=== PATIENT | male | born 1995 | race Caucasian/White ===

== ENCOUNTER 2017-07-28 19:07 | Emergency (ER) | payer OTHER ==
[2017-07-28 19:23] VITALS: PULSE 100
--- NOTE | 2017-07-28 20:10 | C.PDOC ---
History Of Present Illness 22yo male, presents to ED for evaluation of left knee pain, present since earlier today. Patient states he twisted his knee while playing soccer, sustaining the injury. He denies any numbness, tingling or weakness. Offers no other medical complaints. Time Seen by Provider: 07/28/17 19:46 Chief Complaint (Nursing): Lower Extremity Problem/Injury History Per: Patient History/Exam Limitations: no limitations Onset/Duration Of Symptoms: Hrs Current Symptoms Are (Timing): Still Present - Knee Description Of Injury: Twisted Past Medical History Reviewed: Historical Data, Nursing Documentation, Vital Signs Vital Signs: Last Vital Signs Temp 98.1 F 07/28/17 19:19 Pulse 100 H 07/28/17 19:19 Resp 16 07/28/17 19:19 BP 122/81 07/28/17 19:19 Pulse Ox 99 07/28/17 20:24 - Medical History PMH: No Chronic Diseases Surgical History: No Surg Hx Family History: States: No Known Family Hx - Social History Hx Alcohol Use: No Hx Substance Use: No - Immunization History Hx Tetanus Toxoid Vaccination: No Hx Influenza Vaccination: No Hx Pneumococcal Vaccination: No Review Of Systems Musculoskeletal: Positive for: Other (left knee pain) Neurological: Negative for: Weakness, Numbness Physical Exam - Physical Exam Appears: Well, No Acute Distress Eye(s): bilateral: Normal Inspection Extremity: Tenderness (tenderness to lateral and medial aspects of left knee), No Deformity, No Swelling, No Other (ecchymosis) Neurological/Psych: Oriented x3, Normal Motor, Normal Sensation Gait: Other (with minimal limp) ED Course And Treatment O2 Sat by Pulse Oximetry: 99 (RA) Pulse Ox Interpretation: Normal - Other Rad Left knee XR X-Ray: Interpreted by Me, Viewed By Me Interpretation: No fracture or dislocation Progress Note: Pt placed in a knee brace by RN and is ambulatory at [facility] Medical Decision Making Medical Decision Making: Plan: -- XR Left knee Disposition - Disposition Disposition: HOME/ ROUTINE Disposition Time: 20:19 Condition: STABLE Additional Instructions: Please follow up with PMD Take motrin for pain Return to ER if worse Prescriptions: Ibuprofen [Motrin] 600 mg PO Q6H #20 tab Instructions: Knee Sprain (ED) Forms: [employer] (Japanese) - Clinical Impression Clinical Impression: Sprain of left knee - PA / [employer] REP / Resident Statement MD/DO has reviewed & agrees with the documentation as recorded. - Scribe Statement The provider has reviewed the documentation as recorded by the Marcus Villarreal Provider Attestation: All medical record entries made by the Marcus were at my direction and personally dictated by me. I have reviewed the chart and agree that the record accurately reflects my personal performance of the history, physical exam, medical decision making, and the department course for this patient. I have also personally directed, reviewed, and agree with the discharge instructions and disposition.
[2017-07-28 20:46] VITALS: BP 127/78; RESP 20; TEMP 97.8
[2017-07-28 20:47] VITALS: O2SAT 99
--- NOTE | 2017-07-29 09:07 | RAD ---
PROCEDURE: Left Knee Radiographs. HISTORY: Pain. COMPARISON: None. FINDINGS: BONES: No acute fracture or destructive bony lesion identified. JOINTS: Normal. No osteoarthritis. JOINT EFFUSION: None. OTHER FINDINGS: None. IMPRESSION: Unremarkable radiographs of the left knee.
== END 2017-07-28 20:46 | disposition home or self-care (01) ==
LOC: C.ER 19:07
DX: S83.92XA Sprain of unspecified site of left knee, initial encounter (principal); X50.9XXA Other and unspecified overexertion or strenuous movements or postures, initial encounter; Y93.66 Activity, soccer

== ENCOUNTER 2018-11-07 10:30 | Emergency (ER) | payer MEDICAID, OTHER ==
--- NOTE | 2018-11-07 12:04 | C.PDOC ---
History Of Present Illness 23 yo male come in for evaluation of diffuse lower abdominal cramping pain developed since yesterday associated with some constipation. Denies fever, chills, recent illness, N/V/D, change in appetite, UTI sx. Ambulatory, not in any apparent distress. Time Seen by Provider: 11/07/18 11:14 Chief Complaint (Nursing): Abdominal Pain History Per: Patient Past Medical History Reviewed: Historical Data, Nursing Documentation, Vital Signs Vital Signs: Last Vital Signs Temp 98.3 F 11/07/18 10:34 Pulse 90 11/07/18 10:34 Resp 20 11/07/18 10:34 BP 118/77 11/07/18 10:34 Pulse Ox 100 11/07/18 10:34 - Medical History PMH: No Chronic Diseases Surgical History: No Surg Hx Family History: States: No Known Family Hx - Social History Hx Alcohol Use: No Hx Substance Use: No - Immunization History Hx Tetanus Toxoid Vaccination: No Hx Influenza Vaccination: No Hx Pneumococcal Vaccination: No Review Of Systems Except As Marked, All Systems Reviewed And Found Negative. Constitutional: Negative for: Fever, Chills ENT: Negative for: Throat Pain Cardiovascular: Negative for: Chest Pain Respiratory: Negative for: Cough Gastrointestinal: Positive for: Abdominal Pain, Constipation. Negative for: Nausea, Vomiting, Diarrhea, Melena, Hematochezia, Hematemesis Genitourinary: Negative for: Dysuria Musculoskeletal: Negative for: Back Pain Physical Exam - Physical Exam Appears: Well, Non-toxic, No Acute Distress Skin: Normal Color, Warm, Dry Eye(s): bilateral: PERRL Throat: No Erythema Neck: Trachea Midline, Supple Cardiovascular: Rhythm Regular, No Murmur, No JVD Respiratory: No Decreased Breath Sounds, No Accessory Muscle Use, No Stridor, No Wheezing Gastrointestinal/Abdominal: Soft, No Tenderness, No Organomegaly, No Distention, No Guarding, No Rebound Back: No CVA Tenderness Extremity: Normal ROM Neurological/Psych: Oriented x3, Normal Speech ED Course And Treatment O2 Sat by Pulse Oximetry: 100 Pulse Ox Interpretation: Normal - Other Rad Obstructive serial X-Ray: Interpreted by Me, Viewed By Me Interpretation: (-) air-fluid level, gas pattern c/w constipation Progress Note: Pt remained tsable during the ED evaluation. Afebrile, hemodynamicaly stable. NOn-toxic. Abd: benign, (-) guarding, (-) rebound, (-) RLQ tenderness. Obstructive xray review (-) evidence of air-fluid level. Pt advised on OBS for any sign of appendicitis, return to ED immediately if any new hcanges. Pt understand, stable for discharge now. Disposition Counseled Patient/Family Regarding: Diagnosis, Need For Followup - Disposition Referrals: Wilder Snider MD [Staff Provider] - Disposition: HOME/ ROUTINE Disposition Time: 12:05 Condition: STABLE Additional Instructions: Encourage fluids Avoid spicy, greasy food OBSERVE FOR ANY SIGN OF APPENDICITIS- INCREASE ABDOMINAL PAIN, FEVER, VOMITING, CHANGE IN APPETITE OR ANY OTHER NEW CHANGES-RETURN TO ED IMMEDIATELY FOR RE- EVALUATION Follow up with PMD in 2-3 days for re-evaluation. Instructions: Constipation in Adults Forms: [facility] (Sammarinese), Work Excuse - Clinical Impression Clinical Impression: Abdominal bloating, Constipation
[2018-11-07 12:24] VITALS: BP 117/78; PULSE 95; RESP 18; TEMP 98.4
--- NOTE | 2018-11-07 12:29 | RAD ---
Date of service: 11/07/2018 PROCEDURE: Radiographs of the chest and abdomen (obstructive series) HISTORY: pain COMPARISON: No prior. TECHNIQUE: AP radiograph of the chest, with upright and supine radiographs of the abdomen. FINDINGS: CHEST: Lungs: The lungs are well inflated and clear. Cardiovascular: Normal size heart. No pulmonary vascular congestion. No aortic atherosclerotic calcification present Pleura: No pleural fluid. No pneumothorax. Other findings: None. ABDOMEN AND PELVIS: Bowel: The bowel gas pattern is nonspecific. No evidence of mechanical obstruction. Free air: None. Bones: Unremarkable. Other findings: None. IMPRESSION: Nonspecific nonobstructive bowel gas pattern. Clear lungs.
[2018-11-07 19:01] VITALS: O2SAT 100
== END 2018-11-07 12:29 | disposition home or self-care (01) ==
LOC: C.ER 10:30
DX: K59.00 Constipation, unspecified (principal); R14.0 Abdominal distension (gaseous)